=== PATIENT | female | born 1975 | race Caucasian/White ===

== ENCOUNTER 2021-08-13 10:40 | Day surgery (SDC) | payer OTHER, SELFPAY ==
[2021-08-13] VITALS (8 sets, daily range): BP systolic 104–143; BP diastolic 68–99; PULSE 61–96; RESP 16–18; TEMP 36.3–36.7; O2SAT 95–100; BMI 35.4
--- NOTE | 2021-08-13 10:51 | CT_ITS ---
We are attempting to reach an attending provider to discuss findings. An addendum with communication details will be sent when the communication is complete. STUDY: CT ABDOMEN AND PELVIS WITHOUT CONTRAST REASON FOR EXAM: Female, 46 years old. Pain RADIATION DOSAGE (If Supplied By Facility): CTDIvol = ( 18.67 ) mGy, DLP = ( 965.51 ) mGycm TECHNIQUE: Transaxial images were obtained from the dome of the diaphragm to the symphysis pubis without oral contrast, and without intravenous contrast. Sagittal and coronal images were reconstructed. Individualized dose optimization techniques were used for this CT. COMPARISON: None. FINDINGS: The visualized lung bases are unremarkable. The visualized portions of the heart are within normal limits. There is decreased attenuation of the liver consistent with steatosis. Normal gallbladder and extrahepatic biliary system. Normal spleen. Normal pancreas. Normal bilateral adrenal glands. Normal right kidney. Normal left kidney. Normal visualized stomach. Normal small intestine. Normal colon. There is a tubular, thick-walled appendix (>7mm), consistent with acute appendicitis. No loculated fluid collection to suggest abscess. No pneumoperitoneum to suggest perforation. Normal abdominal aorta. Normal inferior vena cava. Normal retroperitoneum. Normal urinary bladder. Status post bilateral tubal ligation. Normal abdominal wall. Mild levoscoliosis of the lumbar spine. CT/Abdomen/Pelvis without Cont IMPRESSION: Acute appendicitis without abscess or perforation. Electronically Signed: Ananda Roberts MD at 12:27 EST Tel , Service support ,
--- NOTE | 2021-08-13 10:52 | EDS_ITS ---
HPI HPI - GI History of Present Illness Chief Complaint: Abd Pain Detail of Chief Complaint: Abdominal pain Informant: patient Narrative Narrative: Patient presents to the emergency department complaint of abdominal pain that started around 1 PM yesterday after eating lunch. Patient states that she has had continuous pain with nausea. She denies vomiting. She denies diarrhea. She denies blood in her stool or black tarry stool. She denies urinary symptoms. She currently rates her pain at an 8 out of 10. Pain is worse with movement and the car ride and hurt. Patient's had prior tubal ligation but no other abdominal surgeries. Prior similar symptoms: No PFSH PFSH Allergy/AdvReac Type Severity Reaction Status Date / Time No Known Allergies Allergy Verified 08/13/21 10:43 ROS ROS ED Constitutional Constitutional ED: Reports systems reviewed and no addt'l complaints, except as documented; Denies body ache(s), change in weight or chills Eyes Eyes: Denies acute decrease in peripheral vision, change in vision, double vision or loss of vision ENT ENT ED: Reports none; Denies ear pain, lip swelling, loss taste/smell, neck pain, otalgia or sore throat Cardiovascular Cardiovascular: Reports none; Denies abdominal pain, chest pain with activity, leg edema, lightheadedness, palpitations, rapid heart rate or syncope Respiratory/Chest Respiratory/Chest: Reports none; Denies change in mental status, dry cough, dyspnea, hemoptysis, shortness of breath at rest or shortness of breath with exertion Gastrointestinal Gastrointestinal: Reports none, abdominal pain and nausea; Denies change in stool character, diarrhea, hematemesis, hematochezia, melena, rectal bleeding or vomiting Genitourinary Genitourinary ED: Reports none; Denies abdominal discomfort, anuria, dysuria, ge nital pain or polyuria Musculoskeletal Musculoskeletal: Reports none; Denies arthralgias, back pain, difficulty walking, extremity pain, muscle weakness or myalgias Integumentary Reports none; Denies abscess or rash Neurologic Neurologic: Reports none; Denies abnormal gait, confusion, focal weakness, frequent falls, headache(s), loss of vision, numbness, paresthesias, radicular pain, vertigo or weakness Psychiatric Psychiatric: Reports systems reviewed and no addt'l complaints, except as documented and none; Denies behavioral changes, confusion, difficulty concentrating, hallucinations, suicidal ideation, tactile hallucinations or visual hallucinations Endocrine Endocrinology: Denies none, cold intolerance, excessive sweating, fatigue or heat intolerance Hematologic/Lymphatic Hematologic/Lymphatic: Reports none; Denies anemia, easy bleeding or easy bruis ing Allergic/Immunologic Allergic/Immunologic ED: Denies as per HPI, none, lip swelling, mouth swelling, throat swelling, tongue swelling or hives EXAM Physical Exam Const Vital Signs: 08/13/21 10:41 Temperature 98.0 F Temperature Source Temporal Pulse Rate 96 Respiratory Rate 16 Blood Pressure 143/99 H Blood Pressure Mean 113 Pulse Ox 98 Oxygen Delivery Method Room Air Positive well nourished and well developed General Appearance ED: well developed and NAD HEENT Reports TM's clear and moist mucous membranes normocephalic and atraumatic; Negative for trauma or tenderness Tympanic Membrane ED: Yes TM's clear Eyes PERRL and EOMs intact bilaterally General Eye ED: Negative for pale conjunctiva or scleral icterus Neck no lymphadenopathy, supple and no JVD General: Negative for tenderness Chest Wall inspection of chest normal and palpation of chest normal Chest: Negative for tenderness Resp normal respiratory effort and clear to auscultation bilaterally Effort and Inspection: Negative for respiratory distress or pain with movement Auscultation: Negative for rhonchi, wheezes or diminished lung sounds Cardio regular rate, regular rhythm, S1 normal heart sound, S2 normal heart sound and no murmurs Peripheral Pulses: pulses 2+ throughout GI normal to inspection, nondistended, normoactive bowel sounds, soft to palpation, non-distended and no masses GI Narrative: Decreased bowel sounds bilaterally. Patient has tenderness palpation over right lower quadrant over McBurney's with guarding. No rebound, rigidity, or peritoneal signs. Palpation: tender Back/Spine no CVA tenderness and no thoracic nor lumbar tenderness Extremity normal to inspection General Extremety ED: Negative for edema General Extremity: Negative for edema Neuro oriented x3, CN's II-XII intact bilaterally, no sensory deficits noted and gait normal Sensorium / Orientation: awake, alert, oriented to person, oriented to place and oriented to time Motor Exam: strength 5/5 throughout and strength abnormal Psych mental status grossly normal Skin no rashes or lesions noted and no wounds MDM MDM MDM Narrative Medical decision making narrative: IV line established on arrival. Patient was medicated with morphine and Zofran. I evaluated the CT scan prior to radiology interpreting it. On my interpretation patient has evidence of acute appendi citis with inflammatory changes to the right lower quadrant and a distended appendix. The appendiceal wall appears thickened. I discussed case with general surgeon on-call Dr. Alanis who will present to the ER to evaluate patient for operative intervention. Lab Data Labs: Laboratory Results - last 24 hr 08/13/21 08/13/21 08/13/21 11:25 11:25 11:25 WBC 10.8 RBC 4.97 Hgb 15.1 H Hct 43.9 MCV 88.3 MCH 30.4 MCHC 34.4 RDW Std Deviation 38.5 RDW Coeff of Chris 11.9 Plt Count 132 L MPV 11.9 Immature Gran % (Auto) 0.500 Neut % (Auto) 79.8 H Lymph % (Auto) 11.2 L [place] % (Auto) 6.9 Eos % (Auto) 1.4 Baso % (Auto) 0.2 Absolute Neuts (auto) 8.6 H Absolute Lymphs (auto) 1.21 Nucleated RBC % 0 Sodium 137 Potassium 3.4 L Chloride 105 Carbon Dioxide 24.0 Anion Gap 8 BUN 7 Creatinine 0.61 Estim Creat Clear Calc 96.34 Est GFR (MDRD) Af Amer 136 Est GFR (MDRD) Non-Af 112 BUN/Creatinine Ratio 11.4 Glucose 95 Lactic Acid 0.7 Calcium 9.0 Total Bilirubin 0.80 AST 9 L ALT 25 Alkaline Phosphatase 55 Total Protein 7.3 Albumin 3.7 Globulin 3.6 Albumin/Globulin Ratio 1.0 Discharge Plan Triage Chief Complaint: Abd Pain ED Provider: Deborah Zavala Dx/Rx/DC Orders Clinical Impression: Acute appendicitis Primary Care Provider: Toby Woo Referrals: Toby Woo MD [Primary Care Provider] - Disposition Disposition: Acute Care Hospital [facility]
[2021-08-13] MEDS: 0.9% Normal Saline 1,000 ML 125 ML IV (11:20)
[2021-08-13] MEDS: Morphine 4 MG/ML Syringe IV (11:20)
[2021-08-13] MEDS: Ondansetron 4 MG/2 ML Vial IV (11:20)
[2021-08-13 11:33] LABS: Absolute Lymphocyte Count 1.21 X10^3/uL (0.83-4.51); Absolute Neutrophil Count 8.6 X10^3/uL (2.0-7.7); Basophil# 0.02 X10^3/uL; Basophil% 0.2 % (0-1); Eosinophil# 0.15 X10^3/uL; Eosinophils% 1.4 % (0-5); Hematocrit 43.9 % (37-47); Hemoglobin 15.1 g/dL (12.0-15.0); Lymphocyte # 1.21 X10^3/ul (0.83-4.51); Lymphocyte % 11.2 % (19-41); Mean Corp Hgb Conc 34.4 g/dL (32-36); Mean Corpuscular Hgb 30.4 pg (27.0-32.0); Mean Corpuscular Volume 88.3 fL (81-99); Mean Platelet Vol. 11.9 fl (6.2-12.0); Monocyte# 0.75 X10^3/uL; Monocyte% 6.9 % (0-10); NRBC Flagged by Analyzer 0 % (0-5); Neutrophil # 8.62 X10^3/uL (2.7-7.7); Neutrophil % 79.8 % (47-70); Platelet Count 132 K/mm3 (150-450); RBC Distribution Width CV 11.9 % (11.6-14.6); RBC Distribution Width SD 38.5 fl (35.1-43.9); Red Blood Count 4.97 M/mm3 (4.2-5.4); White Blood Count 10.8 K/mm3 (4.4-11.0)
[2021-08-13 11:48] LABS: AST(SGOT) 9 U/L (15-37); Alanine Aminotransfer ALT/SGPT 25 U/L (13-56); Albumin, Serum 3.7 g/dL (3.2-5.0); Alkaline Phosphatase 55 U/L (45-117); Anion Gap 8 (5-15); BUN 7 mg/dL (7-18); BUN/Creat Ratio 11.4 RATIO (10-20); Chloride 105 mmol/L (98-107); Creatinine, Serum 0.61 mg/dL (0.55-1.02); EST Glomerular Filtration Rate 112 mL/min (>60); Est Glom Filt Rate - Afr Amer 136 mL/min (>60); Estimated Creatinine Clearance 96.34 ml/min; Globulin 3.6 g/dL (2.2-4.2); Glucose 95 mg/dL (74-106); Potassium 3.4 mmol/L (3.5-5.1); Protein, Total 7.3 g/dL (6.4-8.2); Sodium Level 137 mmol/L (136-145)
[2021-08-13 11:54] LABS: Lactic Acid 0.7 mmol/L (0.4-1.9)
[2021-08-13 12:06] LABS: Bacteria 0 SEEN /hpf (None Seen); Mucous, Urine 0 SEEN /hpf (<or=2+); Red Blood Cells-Urine 0 SEEN /hpf (0-5); White Blood Cells 0 SEEN /hpf (0-5)
[2021-08-13 12:13] LABS: Color, Urine Straw (Yellow); Glucose, Dipstick Normal (Normal); Ketone-Dipstick 15 mg/dl (Negative); Leukocyte Esterase-Dipstick Negative /ul (Negative); Nitrite-Dipstick Negative (Negative); Occult Blood-Urine Negative /ul (Negative); Protein-Dipstick Negative (Negative); Specific Gravity, Urine 1.005 (1.002-1.030); Urine Bilirubin Dipstick Negative (Negative); Urine Clarity Clear (Clear); Urine Urobilinogen Normal (Normal)
--- NOTE | 2021-08-13 12:16 | NURSING ---
SURGERY JO ACUTE APPENDICITIS
[2021-08-13 12:19] LABS: Squamous Epithelial Cells - UA 0-5 SEEN /hpf (5-10)
--- NOTE | 2021-08-13 12:25 | EX.PCM.CON.S ---
Assessment & Plan Assessment/Plan (1) Acute appendicitis: QUALIFIERS: Acute appendicitis type: with localized peritonitis Appendicitis gangrene presence: without gangrene Appendicitis perforation presence: without perforation Appendicitis abscess presence: without abscess Qualified Code(s): K35.30 - Acute appendicitis with localized peritonitis, without perforation or gangrene PLAN: My plan is to perform a laparoscopic appendectomy. I have counseled the patient as to the risks of the procedure, including but not limited to: infection, bleeding, injury to any blood vessels/nerves, injury to any bowel/bladder, injury to any intraabdominal organs such as the liver/spleen, perforation of the GI tract, intraabdominal abscess/bleeding, incisional hernias, injury to the common bile duct/biliary ducts, injury to the spermatic cord/vessels/testicles, recurrence of hernia(s), complications of anesthesia, etc. The patient verbalizes understanding. HPI Consult Data Date of Consult: 08/13/21 HPI Narrative HPI Narrative: OLIVIA VOGEL, is a 46 F who presents presents to the emergency department complaint of abdominal pain that started around 1 PM yesterday after eating lunch. Patient states that she has had continuous pain with nausea. She denies vomiting. She denies diarrhea. She denies blood in her stool or black tarry stool. She denies urinary symptoms. She currently rates her pain at an 8 out of 10. Pain is worse with movement and the car ride and hurt. Patient's had prior tubal ligation but no other abdominal surgeries. Prior similar symptoms: No PFSH Allergy/AdvReac Type Severity Reaction Status Date / Time No Known Allergies Allergy Verified 08/13/21 10:43 ROS Constitutional Constitutional: Denies anorexia, chills or fever(s) Cardiovascular Cardiovascular: Denies chest pain or chest pain at rest Respiratory/Chest Respiratory/Chest: Denies cough or dyspnea Gastrointestinal Gastrointestinal: Reports abdominal pain; Denies constipation, diarrhea, nausea or vomiting Physical Exam Const alert and oriented x3 General Appearance: cooperative HEENT normocephalic and head/scalp atraumatic Eyes PERRL and EOMs intact bilaterally Resp clear to auscultation bilaterally Cardio Rate: regular rate Rhythm: regular rhythm GI Palpation: tender McBurney's point and Rovsing's sign Lab / Micro Data Result Diagrams: 08/13/21 11:25 08/13/21 11:25 Labs: Laboratory Results - last 24 hr 08/13/21 11:25: WBC 10.8, RBC 4.97, Hgb 15.1 H, Hct 43.9, MCV 88.3, MCH 30.4, MCHC 34.4, RDW Std Deviation 38.5, RDW Coeff of Chris 11.9, Plt Count 132 L, MPV 11.9, Immature Gran % (Auto) 0.500, Neut % (Auto) 79.8 H, Lymph % (Auto) 11.2 L, [place] % (Auto) 6.9, Eos % (Auto) 1.4, Baso % (Auto) 0.2, Absolute Neuts (auto) 8.6 H, Absolute Lymphs (auto) 1.21, Nucleated RBC % 0 08/13/21 11:25: Sodium 137, Potassium 3.4 L, Chloride 105, Carbon Dioxide 24.0, Anion Gap 8, BUN 7, Creatinine 0.61, Estim Creat Clear Calc 96.34, Est GFR (MDRD) Af Amer 136, Est GFR (MDRD) Non-Af 112, BUN/Creatinine Ratio 11.4, Glucose 95, Calcium 9.0, Total Bilirubin 0.80, AST 9 L, ALT 25, Alkaline Phosphatase 55, Total Protein 7.3, Albumin 3.7, Globulin 3.6, Albumin/Globulin Ratio 1.0 08/13/21 11:25: Lactic Acid 0.7 08/13/21 12:02: Urine Color Straw, Urine Clarity Clear, Urine pH 7.0, Ur Specific [place] 1.005, Urine Protein Negative, Urine Glucose (UA) Normal, Urine Ketones 15 H, Urine Occult Blood Negative, Urine Nitrite Negative, Urine Bilirubin Negative, Urine Urobilinogen Normal, Ur Leukocyte Esterase Negative, Urine RBC 0 SEEN, Urine WBC 0 SEEN, Ur Squamous Epith Cells 0-5 SEEN, Urine Bacteria 0 SEEN, Urine Mucus 0 SEEN
--- NOTE | 2021-08-13 12:45 | APP_PTH ---
PATIENT: OLIVIA VOGEL LOC: [facility] [place] U#:[id number] AGE/SX: 46/F ROOM: RE08/13/[address]: Dr. Ronny Alanis MD : 1975 BED: DIS: 08/13/2021 SPEC #: [id number] RECD: 08/14/21 07:53 STATUS: WILL REYon #: [id number] BETTY: 08/13/21 12:[address]: Ronny Alanis DEPT: SURGICAL PATHOLOGY RECD BY: Letitia Giron ENTERED: 08/14/21 09:44 SP TYPE: APPENDIX OTHR DR: Dr. Toby Woo MD Tissues: Appendix, NOS Procedures: Surgery Specimen Level III HEADER OPERATION: Laparoscopic appendectomy PRE-OP DIAGNOSIS: Acute appendicitis TISSUE SUBMITTED: Appendix MICROSCOPIC DIAGNOSIS Appendix, appendectomy: Acute appendicitis and periappendicitis. RONALD:trista 08/15/2021 MICROSCOPIC DESCRIPTION Slides are reviewed. GROSS DESCRIPTION Received in fixative is one container labeled with the patient's name and designated appendix. The specimen consists of an appendix measuring 7 cm in length and 0.6 cm in average diameter. No gross perforations are evident. No mass lesion is identified. Patient Insurance Clerk sections are submitted in one cassette. / AM:rg 08/14/2021 TC:2 CPT: 23665
[2021-08-13 12:52] LABS: Internal QC Validated? YES +Cl - CLEAR BKGD; Pregnancy, Urine Negative Negative
[2021-08-13] MEDS: Bupivacaine Mpf 0.5% 30 ML VIAL (13:47)
--- NOTE | 2021-08-13 13:56 | OP.PCM_ITS ---
Problems Associated Problem List Diagnoses (1) Acute appendicitis: Report of Operation Date of Procedure: 08/13/21 Pre-Operative Diagnosis: Acute appendicitis Post-Operative Diagnosis: Same Surgery/Procedure Performed:: Laparoscopic appendectomy Surgeon: Ronny Alanis microbiological analyst: Rey Ledesma Type of Anesthesia: General Anesthesiologist: Joycelyn Hinds Estimated Blood Loss (mL): < 25 cc Description of Procedure: Patient was brought into the operating room. Placed in the supine position. Under excellent general anesthetic the abdomen was sterilely prepped and draped in the usual fashion. Local was injected infraumbilically. Dissection was carried down to the fascia. The fascia grasped with a Lanny. Varies needle was placed inside the abdomen. The abdomen was insufflated to 15 torr. A 10/12 trocar was placed without difficulty. Suprapubic #5 trochars placed, left lower quadrant #5 trocar was placed. Both of these were placed under direct visualization without injury to underlying structures. Patient was placed in the headdown and rotated to the left position. Patient was noted to have acute appendicitis it was not ruptured. I had to mobilize the terminal ileum off of the sidewall I did this with the Enseal and gained access to the appendix I took the mesoappendix down with the Enseal and then transected the appendix with a 45 linear cutter. I placed it in a specimen bag and delivered through the umbilical port without difficulty. The whole surface down here was raw I irrigated out the area irrigated out the pelvis. I held pressure with a Ray-Soledad and then removing the Ray-Soledad I placed some Kylah in the base of where the appendix was located. No bleeding was identified after putting the Kylah in it stayed nice and white. I mobilized the small intestine ran it no Meckel's diverticulum was identified. I removed the trochars under direct visualization good with stasis was noted. Close the fascia the umbilical port with a [id number] stitch of 0 Vicryl skin incisions were closed with subcuticular stitches of 4-0 Monocryl. Steri-Strips were applied sterile dressings were applied and the patient tolerated the procedure well. Admit VTE Documentation VTE Present on Admission: No VTE Mechan Device Prophylaxis: SCD's VTE Pharm Prophylaxis ordered?: No Reason prophylaxis not ordered:: Treatment Not Indicated
--- NOTE | 2021-08-13 14:06 | DCINST_ITS ---
Discharge Instructions Procedure Appendectomy Diet Discharge Diet: Light diet - advance as tolerated (if you have questions about your diet instructions, please talk to you doctor.) Activity Discharge Activity: May Not Drive (for 3-5 days or while taking narcotic pain meds.) May shower in (days): 1 Dressing / Incision Call your doctor if your incision/area has: Continuous Slow Oozing, Sudden Increased Bleeding, Increased Pain/ Swelling, Increased Redness and Foul Smelling Discharge Call your doctor if you observe: Fever of 101 or Higher Suture Line Care: Avoid Pulling/Pushing and Avoid Pinching/Bending Additional Dressing/Incision Instructions:: Keep dressing clean and dry. Change or remove dressing in 2 days. Leave steri strips for 1 week. May protect with a gauze bandaid. Follow Up Care Please Follow Up With: Tabatha Manuel PA-C When: Call office to schedule an appointment to be seen in 1 week. Test Results: Test results from this visit will be discussed in further detail at your follow-up appointment, if applicable. Discharge Plan Admission Attending Provider: Ronny Alanis Primary Care Provider: Toby Woo Discharge Orders/Prescriptions Prescriptions: New oxycodone-acetaminophen [Endocet] 5-325 mg tablet 1 tab PO Q4H PRN (Reason: pain) 5 Days Qty: 20 RF: 0 Referrals / Follow Up: Toby Woo MD [Primary Care Provider] - Tabatha Manuel PA-C [PHYSICIAN BALANCE STAFF INSPECTOR] - Disposition Discharge Orders: Discharge Patient (Routine); Ordered 08/13/21 Ordered By: Dr. Ronny Alanis
[2021-08-13] MEDS: Acetaminophen 325 MG Tablet PO (14:34)
[2021-08-13] MEDS: oxyCODONE 5 MG Tablet PO (14:49)
[2021-08-13] MEDS: Lactated Ringers 1,000 ML 100 ML IV (14:53)
== END 2021-08-13 23:59 | disposition home or self-care (01) ==
LOC: ED 12:12 → SDC 12:24 → AC 12:25
PROVIDERS: Anesthesiology; Emergency Provider Emergency Medicine; PCP Family Medicine; Visit Provider Surgery
PROC: 0DTJ4ZZ Resection of Appendix, Percutaneous Endoscopic Approach (ICD-10-PCS; CPT 44970; principal; 2021-08-13 12:45)
DX: K35.30 Acute appendicitis with localized peritonitis, without perforation or gangrene (principal)
CPT/HCPCS: 44970; 00840; 74176; 80053; 81001; 81025; 83605; 85025; 87426; 88304; 99284; J7030; J7120; A4216; C1760; J0330; J2405

== ENCOUNTER → 2025-05-24 | Outpatient (CLI) | payer OTHER, SELFPAY ==
--- NOTE | 2025-05-24 07:18 | BI_ITS ---
EXAM: SCRN MAMM (CAD)W/YINKA BILAT DATE: 05/24/2025 CLINICAL HISTORY: F, Age 50 y/o , SCREENING TECHNIQUE: Procedure Code: [id number] Modality: MG Procedure: SCRN MAMM (CAD)W/YINKA BILAT COMPARISON: Mammogram study dated 10/20/2018 FINDINGS: TISSUE DENSITY: There are scattered areas of fibroglandular density. Bilateral Breast Mammographic Findings: No significant masses, calcifications or other abnormalities are identified. Benign-appearing round microcalcifications are seen in both breasts. BI/SCRN MAMM (CAD)W/YINKA BILAT IMPRESSION: Benign screening mammogram. OVERALL FINAL ASSESSMENT BI-RADS 2: BENIGN RECOMMENDATION: Routine annual follow-up in 1 Year Additional Recommendation none A letter with findings and recommendations will be mailed to the patient. Reading Location: [id number]
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
[2025-05-24 08:07] LABS: Hematocrit 41.2 % (37-47); Hemoglobin 14.5 g/dL (12.0-15.0); Immature Granulocytes Count 0.030 X10^3/uL (0.0-0.0); Mean Corp Hgb Conc 35.2 g/dL (32-36); Mean Corpuscular Volume 88.4 fL (81-99); Mean Platelet Vol. 11.7 fl (6.2-12.0); NRBC Flagged by Analyzer 0 % (0-5); Platelet Count 155 K/mm3 (150-450); RBC Distribution Width CV 12.6 % (11.6-14.6); RBC Distribution Width SD 40.1 fl (35.1-43.9); Red Blood Count 4.66 M/mm3 (4.2-5.4); White Blood Count 7.1 K/mm3 (4.4-11.0)
[2025-05-24 08:59] LABS: AST(SGOT) 19 U/L (<=31); Alanine Aminotransfer ALT/SGPT 18 U/L (<=34); Albumin, Serum 4.3 g/dL (3.5-5.0); Alkaline Phosphatase 61 U/L (35-104); Anion Gap 11 (5-15); BUN 10 mg/dL (4-19); BUN/Creat Ratio 13.9 RATIO (10-20); Calcium,Total 9.2 mg/dL (7.6-11.0); Carbon Dioxide 22.4 mmol/L (21.0-32.0); Chloride 102 mmol/L (98-108); Cholesterol 296 mg/dL (<=200); Globulin 2.9 g/dL (2.2-4.2); Glucose 88 mg/dL (70-99); Low Density Lipoprotein Calc. 189 mg/dL; Potassium 4.3 mmol/L (3.3-5.1); Triglycerides 222 mg/dL; Very Low Density Lipoprotein 44 mg/dL (5-40); cholesterol:hdl ratio screen 4.54
== END | disposition home or self-care (01) ==
PROVIDERS: Referring Provider Physician Assistant; Visit Provider Physician Assistant
DX: Z12.31 Encounter for screening mammogram for malignant neoplasm of breast (principal); Z00.00 Encounter for general adult medical examination without abnormal findings
CPT/HCPCS: 36415; 77063; 77067; 80053; 80061; 85025